=== PATIENT | female | born 1995 | race African-American/Black ===

== ENCOUNTER 2021-09-13 18:32 | Emergency (ER) | payer MEDICAID ==
[~2021-09-13] VITALS: Ht 157.5 cm; Wt 100.0 kg
[2021-09-13] MEDS ORDERED: FAMOTIDINE 20MG/2ML VIAL IV STA (19:07)
[2021-09-13] MEDS ORDERED: MORPHINE SULFATE 4 MG/ML CPJ (NOT FOR IM USE) IV STA (19:07)
[2021-09-13] MEDS: MAGNESIUM/ALUMINUM HYDROXIDE/SIMETHICONE 30ML UDC PO STA ×2 (19:07→19:33)
[2021-09-13] MEDS ORDERED: SODIUM CHLORIDE 0.9% 1,000 ML IV ONE (19:15)
[2021-09-13 19:17] LABS: BASOPHILS % 0.5 % (0.0-2.0); HEMATOCRIT. 32.9 % (36.0-48.0); HEMOGLOBIN. 10.5 g/dL (12.0-16.0); LYMPHOCYTES % 7.9 % (20.0-50.0); MEAN PLATELET VOLUME 6.9 fl (7.4-10.4); MONOCYTES % 2.2 % (2.0-8.0); NEUTROPHILS % 89.4 % (40.0-76.0); PLATELET 493 x1000/uL (130-400); RED BLOOD CELL COUNT 4.58 mill/uL (4.2-5.4); RED CELL DISTRIBUTION WIDTH 18.9 % (11.6-14.6)
[2021-09-13 19:24] LABS: CHLORIDE 108 mEq/L (98-107)
[2021-09-13 19:34] LABS: HCG SCREEN NEGATIVE
[2021-09-13] MEDS ORDERED: DIPHENHYDRAMINE 50MG/ML VIAL IV ONE (20:00)
[2021-09-13] MEDS ORDERED: HALOPERIDOL LACTATE 5MG/ML VIAL IM ONE (20:00)
[2021-09-13] MEDS ORDERED: ONDANSETRON HCL 4MG/2ML INJ IV ONE (23:15)
[2021-09-14] VITALS: BP 126/78
[2021-09-15] MEDS ORDERED: OMEP40CA20 MT (15:12)
[2021-09-15] MEDS ORDERED: ONDA4TAB5 MT (15:12)
== END 2021-09-14 00:48 | disposition home or self-care (01) ==
LOC: ER 18:32
DX: R11.2 Nausea with vomiting, unspecified (principal); R10.13 Epigastric pain; Z87.19 Personal history of other diseases of the digestive system; Z87.891 Personal history of nicotine dependence; F12.10 Cannabis abuse, uncomplicated
CPT/HCPCS: 36415; 71045; 80053; 83690; 84703; 85025; 93005; 96361; 96372; 96374; 96375; 99285; J1200; J1630; J2270; J2405; J3490; J7030

== ENCOUNTER 2021-09-15 12:38 | Emergency (ER) | payer MEDICAID ==
[~2021-09-15] VITALS: Ht 172.7 cm; Wt 100.0 kg
[2021-09-15] MEDS ORDERED: ONDANSETRON HCL 4MG/2ML INJ IV STA (12:43)
[2021-09-15] MEDS ORDERED: LORAZEPAM 2MG/ML CPJ IV ONE (12:45)
[2021-09-15] MEDS ORDERED: SODIUM CHLORIDE 0.9% 1,000 ML IV ONE (12:45)
[2021-09-15 13:14] LABS: BASOPHILS % 1.3 % (0.0-2.0); EOSINOPHILS % 0.6 % (0.0-5.0); HEMATOCRIT. 33.9 % (36.0-48.0); HEMOGLOBIN. 10.8 g/dL (12.0-16.0); LYMPHOCYTES % 32.4 % (20.0-50.0); MEAN CORPUSCULAR HEMOGLOBIN 23.1 pg (28.0-32.0); MEAN CORPUSCULAR VOLUME 72.3 fL (81.0-99.0); MEAN PLATELET VOLUME 6.6 fl (7.4-10.4); MONOCYTES % 4.4 % (2.0-8.0); NEUTROPHILS % 61.3 % (40.0-76.0); PLATELET 537 x1000/uL (130-400); RED BLOOD CELL COUNT 4.68 mill/uL (4.2-5.4); RED CELL DISTRIBUTION WIDTH 18.5 % (11.6-14.6)
[2021-09-15 13:22] LABS: CHLORIDE 105 mEq/L (98-107)
[2021-09-15 13:27] LABS: ETHANOL BLOOD < 10 mg/dL
[2021-09-15 13:30] LABS: HCG SCREEN NEGATIVE
[2021-09-15] MEDS ORDERED: KETOROLAC 15MG/ML VIAL IV ONE (14:45)
[2021-09-15 14:51] LABS: CLARITY URINE CLOUDY (CLEAR); COLOR URINE YELLOW (YELLOW); KETONES URINE TRACE (NEGATIVE); LEUKOCYTE ESTERASE URINE NEGATIVE (NEGATIVE); NITRITE URINE NEGATIVE (NEGATIVE); OCCULT BLOOD URINE 3+ (NEGATIVE); PROTEIN URINE 1+ (NEGATIVE); SPECIFIC GRAVITY URINE 1.041 (1.005-1.030)
[2021-09-15] MEDS ORDERED: ONDA4TAB5 MT (15:12)
[2021-09-15] MEDS ORDERED: OMEP40CA20 MT (15:12)
[2021-09-15 15:13] LABS: *AMPHETAMINES SCREEN URINE NEGATIVE (NEGATIVE); *BENZODIAZEPINES SCREEN URINE NEGATIVE (NEGATIVE); *COCAINE SCREEN URINE NEGATIVE (NEGATIVE); METHADONE URINE SCREEN NEGATIVE (NEGATIVE); OPIATES URINE SCREEN NEGATIVE (NEGATIVE)
[2021-09-15 15:15] LABS: *BARBITURATES SCREEN URINE NEGATIVE (NEGATIVE); PHENCYCLIDINE URINE SCREEN NEGATIVE (NEGATIVE)
[2021-09-15] MEDS ORDERED: ACETAMINOPHEN 325MG TABLET PO ONE (15:15)
[2021-09-15] MEDS ORDERED: HALOPERIDOL LACTATE 5MG/ML VIAL IM ONE (15:15)
[2021-09-15 15:21] LABS: CANNABINOID URINE SCREEN PRESUMTIVE POSITIVE (NEGATIVE)
[2021-09-15 15:51] VITALS: BP 122/68
== END 2021-09-15 16:31 | disposition home or self-care (01) ==
LOC: ER 12:38
DX: R10.33 Periumbilical pain (principal); Z90.49 Acquired absence of other specified parts of digestive tract; Z91.018 Allergy to other foods
CPT/HCPCS: 36415; 74176; 80053; 80305; 80320; 81003; 81025; 83690; 84703; 85025; 93005; 96372; 96374; 96375; 99285; J1630; J1885; J2060; J2405; J7030; Z7610; G0480

== ENCOUNTER 2022-01-06 11:13 | Emergency (ER) | payer MEDICAID ==
[~2022-01-06] VITALS: Ht 165.1 cm; Wt 109.0 kg
[~2022-01-06 11:13] MED LIST: OMEP40CA20 MT; ONDA4TAB5 MT
[2022-01-06] MEDS ORDERED: ACETAMINOPHEN 325MG TABLET PO STA (11:45)
[2022-01-06] MEDS ORDERED: SODIUM CHLORIDE 0.9% 1,000 ML IV ONE (11:45)
[2022-01-06] MEDS ORDERED: MAGNESIUM/ALUMINUM HYDROXIDE/SIMETHICONE 30ML UDC PO ONE (12:00)
[2022-01-06] MEDS ORDERED: PROCHLORPERAZINE 10MG/2ML VIAL IM ONE (12:00)
[2022-01-06] MEDS ORDERED: VISCOUS LIDOCAINE 2% 15 ML UDC MM ONE (12:00)
[2022-01-06] MEDS ORDERED: PANTOPRAZOLE SODIUM 40 MG/VIAL IV SCH (12:15)
[2022-01-06 12:16] LABS: BASOPHILS % 0.5 % (0.0-2.0); EOSINOPHILS % 0.5 % (0.0-5.0); HEMATOCRIT. 31.9 % (36.0-48.0); LYMPHOCYTES % 18.7 % (20.0-50.0); MEAN CORPUSCULAR HEMOGLOBIN 22.8 pg (28.0-32.0); MEAN CORPUSCULAR VOLUME 72.9 fL (81.0-99.0); MEAN PLATELET VOLUME 7.2 fl (7.4-10.4); MONOCYTES % 4.8 % (2.0-8.0); NEUTROPHILS % 75.5 % (40.0-76.0); PLATELET 349 x1000/uL (130-400); RED BLOOD CELL COUNT 4.38 mill/uL (4.2-5.4); RED CELL DISTRIBUTION WIDTH 16.6 % (11.6-14.6)
[2022-01-06 12:27] LABS: HCG SCREEN NEGATIVE
[2022-01-06 12:29] LABS: PROTHROMBIN TIME 10.9 sec (9.6-11.0)
[2022-01-06 12:30] LABS: CHLORIDE 107 mEq/L (98-107)
[2022-01-06] MEDS ORDERED: PROCHLORPERAZINE 10MG/2ML VIAL IM SCH (12:30)
[2022-01-06] MEDS ORDERED: MORPHINE SULFATE 4 MG/ML CPJ (NOT FOR IM USE) IV ONE (13:30)
[2022-01-06] MEDS ORDERED: MAG-55 MT (14:42)
[2022-01-06] MEDS ORDERED: ACET-2708 MT (14:42)
[2022-01-06] MEDS ORDERED: PROT40 MT (14:42)
[2022-01-06 14:50] VITALS: BP 128/79
== END 2022-01-06 15:00 | disposition home or self-care (01) ==
LOC: ER 11:24
DX: R10.13 Epigastric pain (principal); G89.29 Other chronic pain; D64.9 Anemia, unspecified; I10 Essential (primary) hypertension; Z90.49 Acquired absence of other specified parts of digestive tract; Z98.890 Other specified postprocedural states; Z91.018 Allergy to other foods
CPT/HCPCS: 36415; 76700; 80053; 83605; 83690; 84703; 85025; 85610; 96361; 96372; 96374; 96375; 99284; C9113; J0780; J2270; J7030; 81003

== ENCOUNTER 2022-01-08 13:30 | Emergency (ER) | payer MEDICAID ==
[~2022-01-08] VITALS: Ht 165.1 cm; Wt 91.0 kg
[~2022-01-08 13:30] MED LIST changes: +ACET-2708 MT; +MAG-55 MT; +PROT40 MT
[2022-01-08] MEDS ORDERED: METOCLOPRAMIDE HCL 10MG/2ML VIAL IV STA (13:54)
[2022-01-08] MEDS ORDERED: MAGNESIUM/ALUMINUM HYDROXIDE/SIMETHICONE 30ML UDC PO STA (13:54)
[2022-01-08] MEDS ORDERED: VISCOUS LIDOCAINE 2% 15 ML UDC PO STA (13:54)
[2022-01-08] MEDS ORDERED: SODIUM CHLORIDE 0.9% 1,000 ML IV ONE (14:00)
[2022-01-08] MEDS ORDERED: HALOPERIDOL LACTATE 5MG/ML VIAL IM ONE (14:00)
[2022-01-08] MEDS ORDERED: KETOROLAC 15MG/ML VIAL IV ONE (14:00)
[2022-01-08] MEDS ORDERED: HALOPERIDOL LACTATE 5MG/ML VIAL IM NR (14:50)
[2022-01-08] MEDS ORDERED: METOCLOPRAMIDE HCL 10MG/2ML VIAL IV NR (14:51)
[2022-01-08] MEDS ORDERED: VISCOUS LIDOCAINE 2% 15 ML UDC PO NR (14:51)
[2022-01-08] MEDS ORDERED: ACETAMINOPHEN 325MG TABLET PO ONE (15:15)
[2022-01-08 15:34] LABS: *AMPHETAMINES SCREEN URINE NEGATIVE (NEGATIVE); *BARBITURATES SCREEN URINE NEGATIVE (NEGATIVE); *BENZODIAZEPINES SCREEN URINE NEGATIVE (NEGATIVE); *COCAINE SCREEN URINE NEGATIVE (NEGATIVE); METHADONE URINE SCREEN NEGATIVE (NEGATIVE); OPIATES URINE SCREEN NEGATIVE (NEGATIVE); PHENCYCLIDINE URINE SCREEN NEGATIVE (NEGATIVE)
[2022-01-08 15:36] LABS: BASOPHILS % 0.6 % (0.0-2.0); EOSINOPHILS % 0.3 % (0.0-5.0); HEMATOCRIT. 34.2 % (36.0-48.0); HEMOGLOBIN. 10.5 g/dL (12.0-16.0); LYMPHOCYTES % 31.5 % (20.0-50.0); MEAN CORPUSCULAR HEMOGLOBIN 22.9 pg (28.0-32.0); MEAN CORPUSCULAR VOLUME 74.7 fL (81.0-99.0); MEAN PLATELET VOLUME 7.8 fl (7.4-10.4); NEUTROPHILS % 62.6 % (40.0-76.0); PLATELET 443 x1000/uL (130-400); RED BLOOD CELL COUNT 4.58 mill/uL (4.2-5.4); RED CELL DISTRIBUTION WIDTH 16.9 % (11.6-14.6)
[2022-01-08 15:39] LABS: CANNABINOID URINE SCREEN PRESUMTIVE POSITIVE (NEGATIVE)
[2022-01-08 15:42] LABS: CHLORIDE 106 mEq/L (98-107)
[2022-01-08 15:54] LABS: ETHANOL BLOOD < 10 mg/dL
[2022-01-08 15:55] LABS: B-HCG QUANTITATIVE < 1 mIU/mL (<3)
[2022-01-08] MEDS ORDERED: OLANZAPINE 10 MG/VIAL IM STA (15:57)
[2022-01-08] MEDS ORDERED: ONDANSETRON HCL 4MG/2ML INJ IV ONE (18:15)
[2022-01-08 18:35] VITALS: BP 133/80
[2022-01-09] MEDS ORDERED: METO-293 MT (20:17)
== END 2022-01-08 18:37 | disposition home or self-care (01) ==
LOC: ER 13:30
DX: R10.13 Epigastric pain (principal); R11.2 Nausea with vomiting, unspecified; K21.9 Gastro-esophageal reflux disease without esophagitis; Z90.49 Acquired absence of other specified parts of digestive tract; Z91.018 Allergy to other foods
CPT/HCPCS: 36415; 74176; 80053; 80305; 80320; 81025; 83690; 84484; 84702; 85025; 96361; 96372; 96374; 96375; 99284; J1630; J1885; J2405; J2765; J3490; J7030; G0480

== ENCOUNTER 2022-01-09 15:54 | Emergency (ER) | payer MEDICAID ==
[~2022-01-09] VITALS: Ht 160 cm; Wt 114.0 kg
[2022-01-09] MEDS ORDERED: DEXT 5%/0.9% NACL 1,000 ML IV ONE (16:45)
[2022-01-09] MEDS ORDERED: METOCLOPRAMIDE HCL 10MG/2ML VIAL IV ONE (16:45)
[2022-01-09] MEDS ORDERED: HALOPERIDOL LACTATE 5MG/ML VIAL IM ONE (16:45)
[2022-01-09] MEDS ORDERED: MORPHINE SULFATE 4 MG/ML CPJ (NOT FOR IM USE) IV ONE (16:45)
[2022-01-09] MEDS ORDERED: METO-293 MT (20:17)
[2022-01-09 20:35] VITALS: BP 102/68
== END 2022-01-09 20:38 | disposition home or self-care (01) ==
LOC: ER 15:54
DX: R10.9 Unspecified abdominal pain (principal); R11.2 Nausea with vomiting, unspecified; K21.9 Gastro-esophageal reflux disease without esophagitis; Z90.49 Acquired absence of other specified parts of digestive tract; Z98.890 Other specified postprocedural states
CPT/HCPCS: 96361; 96372; 96374; 96375; 99285; J1630; J2270; J2765; J7042

== ENCOUNTER 2022-03-06 14:28 | Emergency (ER) | payer MEDICAID, OTHER ==
[~2022-03-06] VITALS: Ht 157.5 cm; Wt 114.0 kg
[~2022-03-06 14:28] MED LIST changes: +METO-293 MT
[2022-03-06 15:39] LABS: BASOPHILS % 0.8 % (0.0-2.0); EOSINOPHILS % 0.7 % (0.0-5.0); HEMATOCRIT. 33.4 % (36.0-48.0); HEMOGLOBIN. 10.6 g/dL (12.0-16.0); LYMPHOCYTES % 38.2 % (20.0-50.0); MEAN CORPUSCULAR HEMOGLOBIN 23.1 pg (28.0-32.0); MEAN CORPUSCULAR VOLUME 72.8 fL (81.0-99.0); MEAN PLATELET VOLUME 7.1 fl (7.4-10.4); MONOCYTES % 4.9 % (2.0-8.0); NEUTROPHILS % 55.4 % (40.0-76.0); PLATELET 520 x1000/uL (130-400); RED CELL DISTRIBUTION WIDTH 17.7 % (11.6-14.6)
[2022-03-06 15:48] LABS: CHLORIDE 109 mEq/L (98-107)
[2022-03-06 15:52] LABS: HCG SCREEN NEGATIVE
[2022-03-06 15:56] LABS: ETHANOL BLOOD 32 mg/dL
[2022-03-06 15:59] LABS: CLARITY URINE CLOUDY (CLEAR); COLOR URINE ORANGE (YELLOW); KETONES URINE 2+ (NEGATIVE); LEUKOCYTE ESTERASE URINE TRACE (NEGATIVE); NITRITE URINE NEGATIVE (NEGATIVE); OCCULT BLOOD URINE 3+ (NEGATIVE); PH URINE 8.5 (4.5-8.0); PROTEIN URINE 2+ (NEGATIVE); SPECIFIC GRAVITY URINE 1.025 (1.005-1.030)
[2022-03-06 16:12] LABS: *AMPHETAMINES SCREEN URINE NEGATIVE (NEGATIVE); *BARBITURATES SCREEN URINE NEGATIVE (NEGATIVE); *BENZODIAZEPINES SCREEN URINE NEGATIVE (NEGATIVE); *COCAINE SCREEN URINE NEGATIVE (NEGATIVE); METHADONE URINE SCREEN NEGATIVE (NEGATIVE); OPIATES URINE SCREEN NEGATIVE (NEGATIVE); PHENCYCLIDINE URINE SCREEN NEGATIVE (NEGATIVE)
[2022-03-06 16:22] LABS: CANNABINOID URINE SCREEN PRESUMTIVE POSITIVE (NEGATIVE)
[2022-03-06] MEDS ORDERED: ONDANSETRON HCL 4MG/2ML INJ IV STA (16:40)
[2022-03-06] MEDS ORDERED: MORPHINE SULFATE 4 MG/ML CPJ (NOT FOR IM USE) IV STA (16:40)
[2022-03-06] MEDS ORDERED: SODIUM CHLORIDE 0.9% 1,000 ML IV ONE (16:45)
[2022-03-06] MEDS ORDERED: MIDAZOLAM HCL 2 MG/2 ML VIAL IV ONE (16:45)
[2022-03-06] MEDS ORDERED: OMEP20CA14 MT (18:53)
[2022-03-06] MEDS ORDERED: ONDA4TAB11 PO (18:53)
[2022-03-06] MEDS ORDERED: DICY20TA2 MT (18:53)
[2022-03-06 19:07] VITALS: BP 117/86
[2022-03-07] MEDS ORDERED: ONDA4TAB50 MT (11:52)
[2022-03-07] MEDS ORDERED: OMEP40CA20 MT (11:52)
== END 2022-03-06 19:08 | disposition home or self-care (01) ==
LOC: ER 14:28
DX: R10.13 Epigastric pain (principal); R11.2 Nausea with vomiting, unspecified; R19.7 Diarrhea, unspecified; E86.0 Dehydration; F10.129 Alcohol abuse with intoxication, unspecified; Y90.1 Blood alcohol level of 20-39 mg/100 ml; Z79.899 Other long term (current) drug therapy; Z87.19 Personal history of other diseases of the digestive system
CPT/HCPCS: 36415; 74176; 80053; 80305; 80320; 81003; 83690; 84703; 85025; 96361; 96374; 96375; 99284; J2250; J2270; J2405; J7030; G0480

== ENCOUNTER 2022-05-25 15:03 | Emergency (ER) | payer MEDICAID, OTHER ==
[~2022-05-25] VITALS: Ht 165.1 cm; Wt 91.0 kg
[~2022-05-25 15:03] MED LIST changes: +DICY20TA2 MT; +OMEP20CA14 MT; +ONDA4TAB11 PO; +ONDA4TAB50 MT
[2022-05-25] MEDS ORDERED: ONDANSETRON HCL 4MG/2ML INJ IV ONE (15:30)
[2022-05-25] MEDS ORDERED: FAMOTIDINE 20MG/2ML VIAL IV ONE (15:30)
[2022-05-25] MEDS ORDERED: SODIUM CHLORIDE 0.9% 1,000 ML IV ONE ×2 (15:30→19:30)
[2022-05-25 15:54] LABS: BASOPHILS % 0.7 % (0.0-2.0); EOSINOPHILS % 0.7 % (0.0-5.0); HEMATOCRIT. 32.7 % (36.0-48.0); HEMOGLOBIN. 10.3 g/dL (12.0-16.0); LYMPHOCYTES % 34.5 % (20.0-50.0); MEAN CORPUSCULAR HEMOGLOBIN 22.6 pg (28.0-32.0); MEAN CORPUSCULAR VOLUME 72.2 fL (81.0-99.0); MEAN PLATELET VOLUME 6.9 fl (7.4-10.4); MONOCYTES % 5.8 % (2.0-8.0); NEUTROPHILS % 58.3 % (40.0-76.0); PLATELET 515 x1000/uL (130-400); RED BLOOD CELL COUNT 4.53 mill/uL (4.2-5.4); RED CELL DISTRIBUTION WIDTH 17.1 % (11.6-14.6)
[2022-05-25 16:04] LABS: CLARITY URINE CLEAR (CLEAR); COLOR URINE YELLOW (YELLOW); KETONES URINE NEGATIVE (NEGATIVE); LEUKOCYTE ESTERASE URINE TRACE (NEGATIVE); NITRITE URINE NEGATIVE (NEGATIVE); OCCULT BLOOD URINE NEGATIVE (NEGATIVE); PROTEIN URINE NEGATIVE (NEGATIVE); SPECIFIC GRAVITY URINE 1.001 (1.005-1.030); UROBILINOGEN URINE 0.2 E.U./dL (0.2-1.0)
[2022-05-25 16:07] LABS: CHLORIDE 107 mEq/L (98-107)
[2022-05-25 16:08] LABS: HCG SCREEN NEGATIVE
[2022-05-25 16:14] LABS: ETHANOL BLOOD 27 mg/dL
[2022-05-25] MEDS ORDERED: HALOPERIDOL LACTATE 5MG/ML VIAL IM ONE (16:15)
[2022-05-25] MEDS ORDERED: MAGNESIUM/ALUMINUM HYDROXIDE/SIMETHICONE 30ML UDC PO ONE (16:15)
[2022-05-25 16:24] LABS: *AMPHETAMINES SCREEN URINE NEGATIVE (NEGATIVE); *BARBITURATES SCREEN URINE NEGATIVE (NEGATIVE); *BENZODIAZEPINES SCREEN URINE NEGATIVE (NEGATIVE); *COCAINE SCREEN URINE NEGATIVE (NEGATIVE); CANNABINOID URINE SCREEN NEGATIVE (NEGATIVE); METHADONE URINE SCREEN NEGATIVE (NEGATIVE); OPIATES URINE SCREEN NEGATIVE (NEGATIVE); PHENCYCLIDINE URINE SCREEN NEGATIVE (NEGATIVE)
[2022-05-25 19:26] LABS: INR 1.1; PROTHROMBIN TIME 11.4 sec (9.6-11.0)
[2022-05-25 22:40] VITALS: BP 140/92
[2022-05-26] MEDS ORDERED: ONDA4TAB11 PO (00:54)
[2022-05-26] MEDS ORDERED: FAMO-135 MT (00:54)
[2022-05-26] MEDS ORDERED: IOHEXOL-300 100 ML BOTTLE ONE (03:54)
== END 2022-05-26 00:56 | disposition home or self-care (01) ==
LOC: ER 15:03
DX: R10.13 Epigastric pain (principal); R11.2 Nausea with vomiting, unspecified; F12.10 Cannabis abuse, uncomplicated; Z90.49 Acquired absence of other specified parts of digestive tract; Z91.018 Allergy to other foods
CPT/HCPCS: 36415; 74177; 80053; 80305; 80320; 81003; 81025; 83690; 84703; 85025; 85610; 96361; 96372; 96374; 96375; 99284; J1630; J2405; J3490; J7030; Q9967; G0480

== ENCOUNTER 2025-05-15 08:44 | Emergency (ER) | payer MEDICAID, OTHER ==
[~2025-05-15] VITALS: Ht 157.5 cm; Wt 61.0 kg
[~2025-05-15 08:44] MED LIST changes: +FAMO-135 MT; +ONDA-239 PO; -ONDA4TAB11 PO
[2025-05-15 08:45] VITALS: TEMP 98.6; O2SAT 100
[2025-05-15] MEDS: MORPHINE SULFATE 4 MG/ML INJ (FOR IV/IM USE) IM ONE (09:12)
[2025-05-15] MEDS: ONDANSETRON HCL 4MG/2ML INJ IM ONE (09:12)
[2025-05-15] MEDS: DIPHENHYDRAMINE 50MG/ML VIAL IM STA (09:12)
[2025-05-15 09:26] LABS: BASOPHILS % 1.0 % (0.0-2.0); EOSINOPHILS % 0.7 % (0.0-5.0); HEMATOCRIT. 40.3 % (36.0-48.0); HEMOGLOBIN. 13.3 g/dL (12.0-16.0); LYMPHOCYTES % 45.3 % (20.0-50.0); MEAN PLATELET VOLUME 7.1 fl (7.4-10.4); MONOCYTES % 6.8 % (2.0-8.0); NEUTROPHILS % 46.2 % (40.0-76.0); PLATELET 335 x1000/uL (130-400); RED BLOOD CELL COUNT 4.24 mill/uL (4.2-5.4); RED CELL DISTRIBUTION WIDTH 15.8 % (11.6-14.6)
[2025-05-15 09:34] LABS: CLARITY URINE CLOUDY (CLEAR); COLOR URINE DARK YELLOW (YELLOW); GLUCOSE URINE NEGATIVE (NEGATIVE); KETONES URINE TRACE (NEGATIVE); LEUKOCYTE ESTERASE URINE 2+ (NEGATIVE); NITRITE URINE NEGATIVE (NEGATIVE); OCCULT BLOOD URINE NEGATIVE (NEGATIVE); PH URINE 6.0 (4.5-8.0); PROTEIN URINE TRACE (NEGATIVE); SPECIFIC GRAVITY URINE 1.026 (1.005-1.030); UROBILINOGEN URINE 1.0 E.U./dL (0.2-1.0)
[2025-05-15 09:40] LABS: CREATININE 0.5 mg/dL (0.6-1.0)
[2025-05-15 09:41] LABS: UREA NITROGEN BLOOD 8 mg/dL (9-23)
[2025-05-15 09:43] LABS: ASPARTATE AMINOTRANSFERASE 11 IU/L (<34); BILIRUBIN DIRECT 0.2 mg/dL (<=3.0); BILIRUBIN TOTAL 0.8 mg/dL (0.1-1.0); PROTEIN TOTAL 8.6 g/dL (6.0-8.3)
[2025-05-15 09:47] LABS: HCG SCREEN NEGATIVE
[2025-05-15 09:55] LABS: SQUAMOUS EPITHELIAL CELL URINE 2+ /lpf (RARE/1+)
[2025-05-15 09:56] LABS: RBC URINE 0-2 /hpf (0-2); WBC URINE 15-25 /hpf (0-2)
[2025-05-15 09:57] LABS: BACTERIA URINE 4+
[2025-05-15 09:58] LABS: TRICHOMONAS URINE FEW
[2025-05-15] MEDS ORDERED: METO-293 MT (10:02)
[2025-05-15] MEDS ORDERED: DICY20TA2 MT (10:02)
[2025-05-15] MEDS ORDERED: ONDA-241 MT (10:02)
[2025-05-15] MEDS ORDERED: METR-167 MT (10:10)
[2025-05-15] MEDS: METRONIDAZOLE 500MG TABLET PO ONE (10:18)
[2025-05-15 10:19] VITALS: BP 118/73; PULSE 99; RESP 18; O2SAT 100
[2025-05-15] MEDS: HYDROCODONE/ACETAMINOPHEN 5/325MG TABLET PO STA (10:19)
== END 2025-05-15 10:25 | disposition home or self-care (01) ==
LOC: ER 08:55
DX: R10.9 Unspecified abdominal pain (principal); F12.90 Cannabis use, unspecified, uncomplicated; Z90.49 Acquired absence of other specified parts of digestive tract; Z79.899 Other long term (current) drug therapy
CPT/HCPCS: 99284; 80076; 80048; 81003; 81025; 84703; 85025; 87086; 87186; 87077; 36415; 96372; J1200; J2405; J2270